=== PATIENT | female | born 1960 | race Caucasian/White ===

== ENCOUNTER 2020-04-17 15:43 | Outpatient (CLI) | payer BC, SELFPAY ==
--- NOTE | ~2020-04-17 | XR_ITS ---
XR knee LT min 4V 04/17/2020 16:14 INDICATION: Left knee pain after recent injury PROCEDURE: 4 views left knee COMPARISON: No prior studies for comparison. FINDINGS: Fracture, dislocation or subluxation is not identified. No significant joint effusion. The soft tissues appear within normal limits. No foreign bodies are identified. IMPRESSION: 1: NO ACUTE BONE OR JOINT ABNORMALITY IDENTIFIED. Reviewed, dictated and finalized at location A.
== END 2020-04-17 15:44 | disposition home or self-care (01) ==
PROVIDERS: PCP Family Medicine; Visit Provider Family Medicine
DX: M25.562 Pain in left knee (principal)
CPT/HCPCS: 73564

== ENCOUNTER 2025-03-15 00:33 | Day surgery (SDC) | payer BC, SELFPAY ==
[2025-03-02 08:44] VITALS: BMI 29.0
--- OUTSIDE RECORDS SUMMARY | 2025-03-15 00:36 | XMS_ITS | Clinical Summary ---
Author Organization [employer] [facility] Address [address] [place] [address] Phone Care Team Providers Care Consumer Banker Name Role Phone Orlando Casanova MD Primary Care Provider [phone] Allergies Active Allergy Reactions Criticality Noted Date Comments Penicillins Swelling,Other (See Comments) High 09/01 Lips swell Medications pravastatin (PRAVACHOL) 20 mg tablet late in the day . 8 Active buPROPion HCl (WELLBUTRIN XL) 300 mg Extended Release 24 hour tablet daily . 8 Active omega-3 fatty acids-fish oil 300-1,000 mg Capsule Take 1 Capsule by mouth daily. Active mv-min/iron/folic /calcium/vitK (WOMEN'S MULTIVITAMIN ORAL) Take by mouth. Activ e amLODIPine (NORVASC) 5 mg tablet TAKE 1 TABLET BY MOUTH EVERY DAY 1 Active ibuprofen (MOTRIN) 600 mg tablet ibuprofen 600 mg tablet TAKE 1 TABLET BY MOUTH EVERY 6 HOURS NEEDED FOR MILD PAIN Active Active Problems Patient Care Coordination No te Formatting of this note migh t be different from the original. Primary Care: Orlando Casanova MD Referring Provider: Orlando Casanova MD [address] [address] Other: Dr. 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 Hyperlipidemia Depression Depression Constipation Resolved Problems Problem Noted Date Diagnosed Date Resolved Date Breast microcalcifications 08/28/2017 0 03/30/2018 Immunizations Immunization Administration Dates Next Due ([employer])(12 YR UP) COVID-19 VACCINE - EMERGENCY USE AUTHORIZATION, MRNA, [id number](PF) 30 MCG/0.3 ML IM SUSP 09/07/2020,08/17/2020 INFLUENZA VACCINE QUADRIVALE NT 3 YR UP PF IM 05/26/2016,04/13/2015 Influenza Seasonal Unspecifi ed Formulation IM 05/25/2020,05/20/2019,06/08/2018,2016 Influenza Vaccine Quad Split 3+ Yrs Im 05/30/2014 Family History Medical History Relation Name Comments Heart Attack Brother Hypertension Father German Melanoma Father German Prostate Cancer Father German Diabetes Mother Casie Heart Disease Mother Casie High Cholesterol Mother Casie Breast Cancer Sister Relation Name Status Comments Brother Alive Father German Mother Casie Sister Social History Tobacco Use Types Packs/Day Years Used Date Smoking Tobacco: Never Smokeless Tobacco: Never Tobacco Cessation:Counseling Given: Not Answered Alcohol Use Standard Drinks/Week Comments Yes 1 (1 standard drink = 0.6 oz pur e alcohol) Probably only 1-2 per month Comments No Sex and Gender Information Value Date Recorded Sex Assigned at Not on file Legal Sex Female 10:48 AM CDT Gender Identity Not on file Sexual Orientation Not on file Last Filed Vital Signs Vital Sign Reading Time Taken Comments Blood Pressure 132/84 04/02/2023 1:54 PM CDT Pulse 72 03/19/2021 1:55 PM CDT Temperature 36.6 C (97.9 F) 08/02/2019 9:41 AM COMMERCIAL DECORATOR Respiratory Rate 13 03/31/2018 11:30 AM CDT Oxygen Saturation 96% 08/02/2019 9:41 AM COMMERCIAL DECORATOR Inhaled Oxygen Concentration - - Weight 84.4 kg (186 lb) 04/02/2023 1:54 PM CDT Height 172.7 cm (5' 8) 04/02/2023 1:54 PM CDT Body Mass Index 28.28 04/02/2023 1:54 PM CDT Plan of Treatment Health Maintenance Due Date Last Done Comments DTAP/TDAP/TD VACCINES (1 - Tdap) 01/06/1980 HPV/Cotest (21-29) 1982 CERVICAL CANCER SCREENING 1991 HPV/Cotest (30-65) 1991 PAP SMEAR 1991 COLORECTAL SCREENING 2006 Colorectal Cancer Screening 2006 FIT-DNA Q 3 years 2006 FIT/FOBT Q 1 year 2006 Flex Sig/CT Colonography Q 5 years 2006 ZOSTER VACCINE (1 of 2) 2011 COVID-19 Vaccine ( - 2023-2 5 season) 2024 09/07/2020, 08/17/2020 INFLUENZA VACCINE (#1) 2025 , 05/20/2019, 06/08/2018, Additional history exists RSV VACCINE (60+ or ) (1 - 1-dose 75+ series) 01/06/2036 Medical Devices Implanted Type Area Sugar Cane Farm Manager Device Identifier Shelf Expiration Date Model / Serial / Lot Hemostatic Surgicel 2x14in 1949 - [id number] Implanted:Qty: 1 on 09/23/2017 [place] [facility] [place] Left: Breast J[employer]J- [employer] 07/26/20191950 / / [id number] Hemostat Monalisa Surg Mph Pwd 3gm [id number] - [id number] Implanted:Qty: 1 on 10/05/2017 by Lizbeth Rob[place] [facility] [place] Left: Breast CR BARD- [employer] 04/23/2022 [id number] / / [id number] Hemostatic Surgicel 2x3in 1951 - [id number] Implanted:Qty: 1 on 11/13/2017 by Lizbeth Robison [place] [facility] [place]ostatic Left: Breast J[employer]J- [employer] 11/23/20201952 / / [id number] Mammary Inspira Cohesive 525ml Scx-525 - [id number] Implanted:Qty: 1 on 03/31/2018 by Latrell Davis MD at [facility] [place] Left: Breast ALLERGAN- MEDICAL 05/22/2022 SCX-525 / [id number] / [id number] Mammary Inspira Cohesive 525ml Scx-525 - [id number] Implanted:Qty: 1 on 03/31/2018 by Latrell Davis MD at [facility] [place] Right: Breast [employer]GAN[employer] 09/18/2021 SCX-560 / [id number] / [id number] Alloderm Select Tissue Matrix Rtu Implanted:Qty: 1 on 12/25/2017 by Latrell Daivs MD at [facility] Tissue Right: Breast LIFECELL FENG 11/24/2019 [id number] / / [id number] Alloderm Select Tissue Matrix Implanted:Qty: 1 on 12/25/2017 by Latrell Davis MD at [facility] Tissue Left: Breast LIFECELL FENG 320 SQ CM 11/24/2019 [id number] / / [id number] Description:[id number] Explanted Type Area Sugar Cane Farm Manager Device Identifier Shelf Expiration Date Model / Serial / Lot Javascript Engineer Mmry Tab 400ml 133mx-12-T - [id number] Implanted:Qty : 1 on 12/25/2017 by Latrell Davis MD at [facility] Explanted:Qty : 1 on 03/31/2018 by Latrell Davis MD at [facility] [place] Right: Breast [employer]GAN- MED[employer] 10/30/2020 133MX-12-T / [id number] / Javascript Engineer Mmry Tab 400ml 133mx-12-T - [id number] Implanted:Qty : 1 on 12/25/2017 by Latrell Davis MD at [facility] Explanted:Qty : 1 on 03/31/2018 by Latrell Davis MD at [facility] [place] Left: Breast ALLERGAN- MEDICAL 02/18/2021 133MX-12-T / [id number] / Description:Both Allergan ti ssue expanders are processed on requisition, [id number]. Insurance RX [employer] [employer] Express [facility] FEDERAL Advance Directives For more information, please contact: [phone] * Full Code (Latest Code Status on File) Date Activated Date Inactivated Comments 12/25/2017 8:26 PM 12/26/2017 3:15 PM * Full Code Date Activated Date Inactivated Comments 12/25/2017 1:12 PM 12/25/2017 8:26 PM * Full Code Date Activated Date Inactivated Comments 10/05/2017 9:19 AM 10/05/2017 2:24 PM Care Teams Consumer Banker Relationship Specialty Start Date End Date Orlando Casanova MD [address] [address] PCP - General Family Practice 09/01/17
[2025-03-15 10:10] VITALS: BP 155/91; PULSE 64; RESP 16; TEMP 36.9; O2SAT 100; BMI 28.0
[2025-03-15] MEDS: LACTATED RINGERS 1,000 ML 150 ML IV CONT (10:27)
--- NOTE | 2025-03-15 10:41 | WPDANESEPPF ---
Anes - Initial Pre Proc Eval Procedure: Operation Date: 03/15/25 11:30 Proposed Procedures p Screening Colonoscopy - Fred Santillan MD Date/Time: 03/15/25 10:41 Surgeon: Fred Santillan MD Pre Op Diagnosis: Encounter for screening for malignant neoplasm of Patient Data Age: 65 Gender: F Height: 1.7 m Weight: 81.1 kg Last Vital Signs Temp 36.9 C 03/15/25 10:10 Pulse 64 03/15/25 10:10 Resp 16 03/15/25 10:10 BP 155/91 H 03/15/25 10:10 Pulse Ox 100 03/15/25 10:10 O2 Del Method Room Air 03/15/25 10:10 Allergies Allergy/AdvReac Type Severity Reaction Status Date / Time Penicillins Allergy Severe Swelling Verified 03/15/25 10:16 of Lip/Tongue/Throat Home Medications ?Medication ?Instructions ?Recorded ?Confirmed ?Type bupropion HCl 300 mg 24 hr tablet, 300 mg PO QAM #90 tabs 10/11/24 03/15/25 Rx extended release alprazolam 0.5 mg tablet 0.5 mg PO BID PRN flight anxiety 10/26/24 03/02/25 Rx #4 tabs pravastatin 40 mg tablet 40 mg PO DAILY #90 tabs 11/15/24 03/15/25 Rx amlodipine 5 mg tablet 5 mg PO DAILY #90 tabs 01/05/25 03/15/25 Rx Patient hx anesthesia problems: none Family hx anesthesia problems: none Results Review: All pre-operative results and documents have been reviewed as part of the pre-operative evaluation. [facility] Past Medical History Medical History History of recurrent UTIs High cholesterol Anxiety and depression Abnormal mammogram 08-20-2017 Double Mastectomy left breast calcifications dx mamm and us ordered- 08/15/2017 Left breat Bx recommended-09/07/2017 BX- ductal carcinoma in situ Breast cancer (2018) Surgical History Surgical History History of cystoscopy urethral dilatation History of endometrial ablation History of dilation and curettage History of laparoscopy 08/31/02 diagnostic lscope--pelvic pain, uterine hypertrophy History of 01/24/90 History of ankle surgery (~06/26/80) (L) ankle reconstruction H/O left knee surgery (~06/26/20) (L) knee meniscus repair History of bilateral mastectomy 12/25/17 double mastectomy w/ reconstruction 03/27/18 final reconstruction after double mastectomy Family History Family History Father Hypertension Family history of malignant melanoma Mother Hypertension Family history of diabetes mellitus in first degree relative Family history of coronary artery disease Osteoporosis Sibling Breast cancer sister Social History Social History Smoking status: Never smoker Second hand tobacco smoke exposure: No Alcohol intake: never Alcohol use details: rare Substance use: never Substance use type: does not use Do You Feel Safe in your Home?: Yes Lack of Transportation: No Lack of Food: Never True Current Housing: I Have Housing Concerned About Future Housing: No Difficulty Paying Gas/Electric Bills: No Difficulty Paying for Meds: No Currently Unemployed: No Education: Bachelor's Degree Difficulty w/ Childcare or Family Care: No Living arrangements: with family Additional living arrangements comments: Occupation/Education: retired Gender identity (if verbalized by the patient): Female Sexual Orientation (if Verbalized by the Patient): Straight or Heterosexual Spiritual care concerns: No Anes - Eval Final PreProcedure Day of Procedure 03/15/25 10:41 Patient weight: overweight Heart: regular rate and rhythm Lungs: clear to auscultation Airway: Mallampati scale class II Neurological: alert and oriented Last oral intake: >/= 8 hours ASA classification: II Emergent: no Anesthetic plan: proceed Anesthesia type and monitoring: general GIVS and standard monitoring Results Review: All pre-operative results and documents have been reviewed as part of the pre-operative evaluation. Informed Consent: The patient's anesthetic plan and its attendant risks and benefits were discussed with the patient/family/POA. Questions were solicited and answers provided to the satisfaction of the patient/family/POA.
--- NOTE | 2025-03-15 10:56 | PM.IMHP ---
H&P: HPI History of Present Illness Date/Time: 03/15/25 10:56 Chief Complaint: screening colonoscopy Narrative: This is the patient's 2nd colonoscopy after 10 years.. There are no GI symptoms and there is no family history of colorectal cancer. Review of Systems Review of Systems: All systems reviewed & are unremarkable except as noted in HPI and below PMFSH Past Medical History Medical History History of recurrent UTIs High cholesterol Anxiety and depression Abnormal mammogram 08-20-2017 Double Mastectomy left breast calcifications dx mamm and us ordered- 08/15/2017 Left breat Bx recommended-09/07/2017 BX- ductal carcinoma in situ Breast cancer (2018) Surgical History Surgical History History of cystoscopy urethral dilatation History of endometrial ablation History of dilation and curettage History of laparoscopy 08/31/02 diagnostic lscope--pelvic pain, uterine hypertrophy History of 01/24/90 History of ankle surgery (~06/26/80) (L) ankle reconstruction H/O left knee surgery (~06/26/20) (L) knee meniscus repair History of bilateral mastectomy 12/25/17 double mastectomy w/ reconstruction 03/27/18 final reconstruction after double mastectomy Family History Family History Father Hypertension Family history of malignant melanoma Mother Hypertension Family history of diabetes mellitus in first degree relative Family history of coronary artery disease Osteoporosis Sibling Breast cancer sister Social History Social History Smoking status: Never smoker Second hand tobacco smoke exposure: No Alcohol intake: never Alcohol use details: rare Substance use: never Substance use type: does not use Do You Feel Safe in your Home?: Yes Lack of Transportation: No Lack of Food: Never True Current Housing: I Have Housing Concerned About Future Housing: No Difficulty Paying Gas/Electric Bills: No Difficulty Paying for Meds: No Currently Unemployed: No Education: Bachelor's Degree Difficulty w/ Childcare or Family Care: No Living arrangements: with family Additional living arrangements comments: Occupation/Education: retired Gender identity (if verbalized by the patient): Female Sexual Orientation (if Verbalized by the Patient): Straight or Heterosexual Spiritual care concerns: No Meds Home Medications and Allergies Home Medications ?Medication ?Instructions ?Recorded ?Confirmed ?Type bupropion HCl 300 mg 24 hr tablet, 300 mg PO QAM #90 tabs 10/11/24 03/15/25 Rx extended release alprazolam 0.5 mg tablet 0.5 mg PO BID PRN flight anxiety 10/26/24 03/02/25 Rx #4 tabs pravastatin 40 mg tablet 40 mg PO DAILY #90 tabs 11/15/24 03/15/25 Rx amlodipine 5 mg tablet 5 mg PO DAILY #90 tabs 01/05/25 03/15/25 Rx Allergies Allergy/AdvReac Type Severity Reaction Status Date / Time Penicillins Allergy Severe Swelling Verified 03/15/25 10:16 of Lip/Tongue/Throat Vital Signs Vital Signs - 24 hr 03/15/25 10:10 Temperature 98.4 F Pulse Rate 64 Respiratory Rate 16 Blood Pressure 155/91 H Pulse Oximetry 100 Oxygen Delivery Room Air Exam Const: General: cooperative and healthy appearing Resp: Effort & Inspection: normal respiratory effort and able to speak in complete sentences Auscultation: clear to auscultation bilaterally Cardio: Rate: regular rate Rhythm: regular rhythm GI: Inspection: normal to inspection GI Palp: No No hepatosplenomegaly present Auscultation: normal bowel sounds Rectal Exam: deferred Skin: General skin exam: normal color Psych: Appearance: grossly normal Mental Status: mental status grossly normal Assessment and Plan Assessment and plan (1) Encounter for screening colonoscopy: Code(s): Z12.11 - Encounter for screening for malignant neoplasm of colon Status: Acute Assessment and Plan: The patient is deemed a good candidate for the procedure. Consent signed. Will proceed.
--- NOTE | 2025-03-15 11:22 | P.HP_ITS ---
H&P: HPI History of Present Illness Date/Time: 03/15/25 11:22 Chief Complaint: Screening colonoscopy Narrative: This is the patient's 2nd colonoscopy after 10 years.. There are no GI symptoms and there is no family history of colorectal cancer. Review of Systems Review of Systems: All systems reviewed & are unremarkable except as noted in HPI and below PMFSH Past Medical History Medical History History of recurrent UTIs High cholesterol Anxiety and depression Abnormal mammogram 08-20-2017 Double Mastectomy left breast calcifications dx mamm and us ordered- 08/15/2017 Left breat Bx recommended-09/07/2017 BX- ductal carcinoma in situ Breast cancer (2018) Surgical History Surgical History History of cystoscopy urethral dilatation History of endometrial ablation History of dilation and curettage History of laparoscopy 08/31/02 diagnostic lscope--pelvic pain, uterine hypertrophy History of 01/24/90 History of ankle surgery (~06/26/80) (L) ankle reconstruction H/O left knee surgery (~06/26/20) (L) knee meniscus repair History of bilateral mastectomy 12/25/17 double mastectomy w/ reconstruction 03/27/18 final reconstruction after double mastectomy Family History Family History Father Hypertension Family history of malignant melanoma Mother Hypertension Family history of diabetes mellitus in first degree relative Family history of coronary artery disease Osteoporosis Sibling Breast cancer sister Social History Social History Smoking status: Never smoker Second hand tobacco smoke exposure: No Alcohol intake: never Alcohol use details: rare Substance use: never Substance use type: does not use Do You Feel Safe in your Home?: Yes Lack of Transportation: No Lack of Food: Never True Current Housing: I Have Housing Concerned About Future Housing: No Difficulty Paying Gas/Electric Bills: No Difficulty Paying for Meds: No Currently Unemployed: No Education: Bachelor's Degree Difficulty w/ Childcare or Family Care: No Living arrangements: with family Additional living arrangements comments: Occupation/Education: retired Gender identity (if verbalized by the patient): Female Sexual Orientation (if Verbalized by the Patient): Straight or Heterosexual Spiritual care concerns: No Meds Home Medications and Allergies Home Medications ?Medication ?Instructions ?Recorded ?Confirmed ?Type bupropion HCl 300 mg 24 hr tablet, 300 mg PO QAM #90 t abs 10/11/24 03/15/25 Rx extended release alprazolam 0.5 mg tablet 0.5 mg PO BID PRN flight anx iety 10/26/24 03/02/25 Rx #4 tabs pravastatin 40 mg tablet 40 mg PO DAILY #90 tabs 10/2603/15/25 Rx amlodipine 5 mg tablet 5 mg PO DAILY #90 tabs 01/0503/15/25 Rx Allergies Allergy/AdvReac Type Severity Reaction Status Date / Time Penicillins Allergy Severe Swelling Verified 03/15/25 10:16 of Lip/Tongue/Throat Vital Signs Vital Signs - 24 hr 03/15/25 10:10 Temperature 98.4 F Pulse Rate 64 Respiratory Rate 16 Blood Pressure 155/91 H Pulse Oximetry 100 Oxygen Delivery Room Air Exam Const: General: cooperative and healthy appearing Resp: Effort & Inspection: normal respiratory effort and able to speak in complete sentences Auscultation: clear to auscultation bilaterally Cardio: Rate: regular rate Rhythm: regular rhythm GI: Inspection: normal to inspection GI Palp: No No hepatosplenomegaly present Auscultation: normal bowel sounds Rectal Exam: deferred Skin: General skin exam: normal color Psych: Appearance: grossly normal Mental Status: mental status grossly normal Assessment and Plan Assessment and plan (1) Encounter for screening colonoscopy: Code(s): Z12.11 - Encounter for screening for malignant neoplasm of colon Status: Acute Assessment and Plan: The patient is deemed a good candidate for the procedure. Consent signed. Will proceed.
[2025-03-15 11:52] VITALS: BP 118/97; PULSE 63; RESP 16; O2SAT 100
[2025-03-15 12:02] VITALS: BP 125/80; PULSE 60; RESP 18; O2SAT 100
[2025-03-15 12:12] VITALS: BP 143/79; PULSE 56; RESP 20; O2SAT 100
== END 2025-03-15 12:19 | disposition home or self-care (01) ==
PROVIDERS: PCP Family Medicine; Referring Provider Physician Assistant Medical; Visit Provider Internal Medicine Gastroenterology
PROC: 0DJD8ZZ Inspection of Lower Intestinal Tract, Via Natural or Artificial Opening Endoscopic (ICD-10-PCS; CPT 45378; principal; 2025-03-15 11:30)
DX: Z12.11 Encounter for screening for malignant neoplasm of colon (principal); K64.8 Other hemorrhoids; E78.00 Pure hypercholesterolemia, unspecified; F41.8 Other specified anxiety disorders; Z98.890 Other specified postprocedural states; Z98.891 History of uterine scar from previous surgery; Z90.13 Acquired absence of bilateral breasts and nipples; Z85.3 Personal history of malignant neoplasm of breast; Z80.3 Family history of malignant neoplasm of breast; Z80.8 Family history of malignant neoplasm of other organs or systems; Z82.49 Family history of ischemic heart disease and other diseases of the circulatory system
CPT/HCPCS: 45378; J2003; J2704; J7120